=== PATIENT | female | born 1970 | race Caucasian/White ===

== ENCOUNTER 2021-09-16 15:42 | Emergency (ER) | payer BC ==
[~2021-09-16] VITALS: Ht 165.1 cm; Wt 107.5 kg
[2021-09-16] MEDS ORDERED: CHILDREN'S ZYRT10 M1 PO (16:03)
[2021-09-16] MEDS ORDERED: VENTOLIN HFA 1818 GM INH (16:03)
[2021-09-16] MEDS ORDERED: DULCOLAX5 MG PO (16:04)
[2021-09-16] MEDS ORDERED: HYDROXYZINE PAM25 M1 PO (16:05)
[2021-09-16] MEDS ORDERED: PRAVASTATIN SOD40 MG PO (16:06)
[2021-09-16] MEDS ORDERED: LEVOTHYROXINE137 MC1 PO (16:06)
[2021-09-16] MEDS ORDERED: PREGABALIN75 MG PO (16:07)
[2021-09-16] MEDS ORDERED: METFORMIN HCL500 M3 PO (16:07)
[2021-09-16] MEDS ORDERED: MELOXICAM15 MG PO (16:07)
[2021-09-16] MEDS ORDERED: TRAMADOL 50 MG50 MG PO (16:07)
[2021-09-16] MEDS ORDERED: ZOFRAN ODT4 MG DISSOLVE (16:08)
[2021-09-16 16:47] LABS: ABSOLUTE BASOPHILS 0.1 thou/uL (0.0-0.2); ABSOLUTE EOSINOPHILS 0.3 thou/uL (0.0-0.7); ABSOLUTE LYMPHOCYTES 2.3 thou/uL (0.8-5.3); ABSOLUTE MONOCYTES 0.4 thou/uL (0.0-1.2); ABSOLUTE NEUTROPHILS 2.4 thou/uL (1.6-8.1); BASOPHILS 1.1 %; EOSINOPHILS 5.6 %; HEMATOCRIT 41.4 % (37.0-47.0); HEMOGLOBIN 14.6 gm/dL (12.0-15.0); LYMPHOCYTES 41.4 %; MCH 32.4 pg (26.0-34.0); MCHC 35.4 g/dL (28.0-37.0); MCV 91.8 fL (80.0-100.0); MONOCYTES 7.8 %; MPV 8.3 fl. (7.2-11.1); NUCLEATED RBCS 0 /100WBC; PLATELET COUNT* 256 thou/uL (150-400); POLYS 44.1 %; RBC 4.51 mil/uL (4.20-5.00); RDW-CV 12.2 % (10.5-14.5); WBC 5.5 thou/uL (4.0-11.0)
[2021-09-16 16:53] LABS: URINE BILIRUBIN NEGATIVE (Negative); URINE BLOOD NEGATIVE (Negative); URINE CLARITY CLEAR; URINE COLOR YELLOW; URINE GLUCOSE-RANDOM NEGATIVE (Negative); URINE KETONES NEGATIVE (Negative); URINE LEUKOCYTES NEGATIVE (Negative); URINE NITRITE NEGATIVE (Negative); URINE PROTEIN NEGATIVE (Negative); URINE UROBILINOGEN 0.2 E.U./dl (0.2-1.0)
[2021-09-16 16:55] LABS: CREATININE 0.8 mg/dL (0.6-1.3); POTASSIUM 3.7 mmol/L (3.5-5.1)
[2021-09-16 16:59] LABS: ALBUMIN 3.7 g/dL (3.4-5.0); TOTAL BILIRUBIN 0.5 mg/dL (<0.1-1.0); TOTAL PROTEIN 7.2 g/dL (6.4-8.2)
[2021-09-16] MEDS ORDERED: ZOFRAN ODT4 MG PO (19:25)
[2021-09-16 19:34] VITALS: BP 145/72
== END 2021-09-16 19:35 | disposition home or self-care (01) ==
LOC: M.ERS 15:42
PROVIDERS: Physician Assistant
DX: K52.9 Noninfective gastroenteritis and colitis, unspecified (principal); Z20.822 Contact with and (suspected) exposure to COVID-19; Z79.84 Long term (current) use of oral hypoglycemic drugs; Z79.51 Long term (current) use of inhaled steroids; Z79.899 Other long term (current) drug therapy; Z88.2 Allergy status to sulfonamides; Z88.0 Allergy status to penicillin; Z88.6 Allergy status to analgesic agent; Z88.8 Allergy status to other drugs, medicaments and biological substances